=== PATIENT | male | born 1965 | race Caucasian/White ===

== ENCOUNTER 2016-12-09 04:25 | Emergency (ER) | payer OTHER ==
[~2016-12-09] VITALS: Ht 167.6 cm; Wt 86.2 kg
[2016-12-09 04:33] VITALS: BP 150/81
--- NOTE | 2016-12-09 04:42 | NUR ---
AMBULATED TO ER BED 5
--- NOTE | 2016-12-09 04:50 | NUR ---
Patient being evaluated by DR. HURST at bedside.
[2016-12-09] MEDS ORDERED: NACL 0.9% 1,000 ML IV ONE (04:55)
[2016-12-09] MEDS ORDERED: TAMSULOSIN 0.4 MG CAP PO SCH (04:55)
[2016-12-09] MEDS ORDERED: KETOROLAC 30 MG/ML VIAL IVP ONE (04:55)
--- NOTE | 2016-12-09 05:09 | NUR ---
lab-blood tubes with sticker sent to lab
[2016-12-09 05:21] LABS: HEMOGLOBIN 14.5 g/dL (12.0-18.0); MEAN CORPUSCULAR HEMOGLOBIN 27 pg (27-31); MEAN CORPUSCULAR HGB CONC 32 g/dL (33-37); MEAN CORPUSCULAR VOLUME 83 fL (80-94); PLATELET COUNT (AUTO) 212 K/uL (140-450); RED BLOOD CELL COUNT(AUTO) 5.45 MIL/uL (4.20-6.10); RED CELL DISTRIBUTION WIDTH 13.5 % (11.6-13.7)
[2016-12-09 05:23] LABS: BILIRUBIN,URINE NEGATIVE (NEGATIVE); BLOOD, URINE 3+ (NEGATIVE); COLOR,URINE YELLOW (YELLOW); LEUKOCYTE ESTERASE ,URINE NEGATIVE (NEGATIVE); NITRITE, URINE NEGATIVE (NEGATIVE); PH,URINE 5.5 (5.0-9.0); UGLUCOSE NEGATIVE (NEGATIVE)
--- NOTE | 2016-12-09 05:24 | NUR ---
50Y/F PT. PRESENTS TO ED WITH C/O RT. FLANK PAIN X 3 DAYS. DENIES N/V/D. ALSO STATES EPISODE FEVER AT HOME. NO MEDICAL HX, NO SX. AAO X4, AMBULATORY WITH STEADY GAIT. RESPIRATIONS ROOM AIR, EVEN AND UNLABORED. SKIN WARM AND DRY. ABODOMEN SOFT, NON-TENDER, HYPOACTIVE BS RLQ. C/O PAIN /. VSS, ER MADE AWARE OF PT. STATUS.
[2016-12-09 05:35] LABS: APPEARANCE,URINE SLIGHTLY HAZY (CLEAR); RBC,URINE 20-50 /HPF (0-5)
[2016-12-09 05:35] LABS: ANION GAP 15.1 (8-16); CARBON DIOXIDE 22.5 mmol/L (21-32); CREATININE 1.2 mg/dL (0.7-1.3); POTASSIUM 3.6 mmol/L (3.5-5.1)
[2016-12-09 05:36] LABS: WBC,URINE 0-5 (RARE) /HPF (0-5); YEAST,URINE Few /HPF (None Seen)
[2016-12-09 05:50] LABS: EOSINOPHILS % (MANUAL) 2 % (0-4); LYMPHOCYTES % (MANUAL) 25 % (20-46); MONOCYTES % (MANUAL) 10 % (5-12)
--- NOTE | 2016-12-09 06:10 | NUR ---
Patient discharged with v/s stable. Written and verbal after care instructions given and explained. Patient alert, oriented and verbalized understanding of instructions. Ambulatory with steady gait. All questions addressed prior to discharge. ID band removed. Patient advised to follow up with PMD. Rx of FLOMAX 0.4 MG, NORCO 5/325 MG, DIFFLUCAN 100 MG given. Patient educated on indication of medication including possible reaction and side effects. Opportunity to ask questions provided and answered.
[2016-12-09 06:21] VITALS: BP 161/82
== END 2016-12-09 06:10 | disposition home or self-care (01) ==
LOC: MED 04:25
DX: N20.1 Calculus of ureter (principal); R03.0 Elevated blood-pressure reading, without diagnosis of hypertension; Z90.89 Acquired absence of other organs
CPT/HCPCS: 36415; 80048; 81001; 85025; 96361; 96374; 99284; J1885; J7030

== ENCOUNTER 2022-03-06 06:29 | Emergency (ER) | payer SELFPAY ==
[~2022-03-06] VITALS: Ht 177.8 cm; Wt 83.9 kg
[2022-03-06 06:30] VITALS: BP 157/76
--- NOTE | 2022-03-06 06:38 | NUR ---
PT TO BED #06
--- NOTE | 2022-03-06 06:49 | NUR ---
DR THAKKAR AT BEDSIDE
[2022-03-06] MEDS ORDERED: MECLIZINE 25 MG TAB PO ONE (06:50)
[2022-03-06] MEDS ORDERED: METOCLOPRAMIDE 10 MG TAB PO ONE (06:50)
--- NOTE | 2022-03-06 07:25 | NUR ---
Report recieved from DAPHNE Pérez for transfer of care.
[2022-03-06 07:30] LABS: BASOPHILS # (AUTO) 0.1 K/uL (0.00-0.22); EOSINOPHILS # (AUTO) 0.2 K/uL (0-0.4); EOSINOPHILS % (AUTO) 3.3 % (0.0-4.0); HEMATOCRIT 44.6 % (36-52); HEMOGLOBIN 14.8 g/dL (12.0-18.0); LYMPHOCYTES # (AUTO) 2.3 K/uL (2.0-11.5); MEAN CORPUSCULAR HEMOGLOBIN 27 pg (27-31); MEAN CORPUSCULAR HGB CONC 33 g/dL (33-37); MEAN CORPUSCULAR VOLUME 82.3 fL (80-94); MONOCYTES # (AUTO) 0.5 K/uL (0.8-1.0); MONOCYTES % (AUTO) 7.7 % (1.7-9.3); NEUTROPHILS # (AUTO) 3.9 K/uL (1.8-7.7); PLATELET COUNT (AUTO) 216 K/uL (140-450); RED BLOOD CELL COUNT(AUTO) 5.42 MIL/uL (4.20-6.10); RED CELL DISTRIBUTION WIDTH 14.3 % (11.6-13.7)
[2022-03-06 07:59] LABS: ALBUMIN 3.4 g/dL (3.4-5.0); ANION GAP 13.6 (8-16); CARBON DIOXIDE 25.2 mmol/L (21-32); CREATININE 1.1 mg/dL (0.6-1.3); POTASSIUM 3.8 mmol/L (3.5-5.1); TOTAL BILIRUBIN 0.4 mg/dL (0.0-1.0)
[2022-03-06] MEDS ORDERED: MECL-303 PO (08:20)
[2022-03-06] MEDS ORDERED: ONDA-188 SL (08:20)
[2022-03-06 08:33] VITALS: BP 135/70
--- NOTE | 2022-03-06 08:33 | NUR ---
Patient discharged with v/s stable. Written and verbal after care instructions given. Patient alert, oriented and verbalized understanding of instructions. Ambulatory with steady gait. All questions addressed prior to discharge. ID band removed. Patient advised to follow up with PMD. Rx of Zofran and Antivert given. Opportunity to ask questions provided and answered. WORK NOTE HANDED TO PATIENT.
== END 2022-03-06 08:33 | disposition home or self-care (01) ==
LOC: MED 06:29
DX: H81.13 Benign paroxysmal vertigo, bilateral (principal); I10 Essential (primary) hypertension; N20.0 Calculus of kidney; Z79.899 Other long term (current) drug therapy
CPT/HCPCS: 36415; 80053; 85025; 99284; J8597; Q0163